=== PATIENT | female | born 1945 | race Caucasian/White ===

== ENCOUNTER → 2016-09-09 | Outpatient (CLI) | payer OTHER ==
[~2016-09-09] MED LIST: ACIDOPHILUS1 EAC3 PO; ALIGN4 MG PO; APAP500 PO; CENTRUM TABLET1 TAB PO; IBUPROFEN 200200 M1 PO; PRILOSEC 20 MG20 MG PO; REGLAN 10 MG TA10 MG PO
== END ==
LOC: CAT 16:38
DX: J44.9 Chronic obstructive pulmonary disease, unspecified (principal)

== ENCOUNTER → 2017-08-11 | Outpatient (CLI) | payer OTHER ==
[~2017-08-11] VITALS: Ht 157.5 cm; Wt 72.6 kg
[~2017-08-11] MED LIST changes: +ACCUNEB SO1.25 MG/1 INH; +CENTRUM SILVER1 EAC4 PO; +ELIQUIS5 MG PO; +KLOR-CON 1010 MEQ PO; +LASIX 40 MG TAB40 M2 PO; +MAGNESIUM CITR100 MG PO; +SYMBICORT160 MCG/4. INH; +TIKOSYN250 MCG PO; +TOPAMAX50 MG PO
--- NOTE | ~2017-08-11 | P ---
[facility] [place] [address] [place] [address] PROCEDURE REPORT Name: CHIOMA DEUTSCH Room #: REG [facility]#: [id number] Admission: 08/11/17 Attend Phys: Bartolo Ordoñez Discharge: Date of : 41 Report #: [id number] THIS REPORT FOR: //name// CC: Bartolo Covarrubias [facility] physician/PCP HANNA WHITING DATE OF SERVICE: 08/11/2017 PROCEDURE PERFORMED: Colonoscopy with biopsies. HISTORY OF PRESENT ILLNESS: The patient is a 71-year-old female who presents today for routine colonoscopy. No family history of colon cancer. PROCEDURE: The risks and benefits of the procedure were explained to the patient, those risks including, but not limited to bleeding, perforation, and the risk of sedation. She understood these risks and gave informed consent. Sedation was given using propofol per anesthesia. Next, a digital rectal exam was initially performed, which was normal. Next, using a standard Fujinon colonoscope, the scope was placed in the patient's anus and advanced under direct vision to the cecum. The overall prep was excellent. The cecum and ileocecal valve were normal in appearance. Ascending, transverse and descending colon were normal. Random biopsies were obtained to rule out microscopic colitis. A few small scattered diverticula were noted in the sigmoid colon, no evidence of inflammation, otherwise normal. A surgical anastomosis in the remaining sigmoid colon was noted. Of note, the patient had a previous partial sigmoid resection in the past for diverticulitis. The rectal mucosa was normal. On retroflexion, no abnormalities were noted. The scope was then withdrawn and the procedure terminated. The patient tolerated the procedure well. IMPRESSION: 1. Surgical anastomosis noted in the sigmoid colon. 2. A few small diverticula noted in the remaining sigmoid colon. 3. Otherwise, normal colonoscopy. RECOMMENDATIONS: 1. Consider repeat colonoscopy in 10 years. 2. Await biopsy results. Thank you for allowing me to participate in her care. By: [id number] [id number] Bartolo Covarrubias MD /nt
--- NOTE | ~2017-08-11 | P ---
[facility] [place] [address] [place] [address] PROCEDURE REPORT Name: CHIOMA DEUTSCH [facility] [id number] Admission: 08/11/17 Attend Phys: Bartolo Ordoñez Discharge: Date of : 41 Report #: [id number] THIS REPORT FOR: //name// CC: Bartolo Covarrubias [facility] physician/PCP HANNA WHITING DATE OF SERVICE: 08/11/2017 PROCEDURE PERFORMED: Upper endoscopy with biopsies. HISTORY OF PRESENT ILLNESS: The patient is a 71-year-old female with a history of Bradley's esophagus, on daily PPI therapy. She denies any significant heartburn symptoms currently. Denies any dysphagia. Last upper endoscopy with biopsies was 3 years ago. The patient also reports recent diarrhea after starting an anti-depressive medication, which has now been discontinued. PROCEDURE: The risks and benefits of the procedure were explained to the patient, those risks including, but not limited to bleeding, perforation, and the risk of sedation. She understood these risks and gave informed consent. Sedation was given using propofol per anesthesia. Next, using a standard Visual IQn upper endoscope, the scope was placed in the patient's mouth and advanced under direct vision through the esophagus, stomach and into the second portion of the duodenum. The larynx was normal in appearance. The upper and mid esophagus were normal. In the distal esophagus, 2 shorts segment Bradley's esophagus was noted. Biopsies were obtained. There was no evidence of esophagitis. Upon entering the stomach, a small hiatal hernia was noted. Overall, the gastric mucosa was normal. The pylorus was normal and patent. The duodenal bulb, first and second portion were all normal. Biopsies were obtained of the second portion of duodenum to rule out sprue. The scope was then withdrawn and the procedure terminated. The patient tolerated the procedure well. IMPRESSION: 1. Short segment Bradley's esophagus. 2. Small hiatal hernia. 3. Otherwise, normal upper endoscopy. RECOMMENDATIONS: 1. Await biopsy results. 2. Continue PPI therapy. 3. We will proceed with colonoscopy next today. [facility] [address] [place] [address] PROCEDURE REPORT Name: CHIOMA DEUTSCH Room #: REG ALE[facility] Macedo#: [id number] Admission: 08/11/17 Attend Phys: Bartolo Ordoñez Discharge: Date of : 41 Report #: [id number] Thank you for allowing me to participate in her care. By: 1022 [id number] Bartolo Covarrubias MD /nt
--- NOTE | ~2017-08-11 | S ---
[facility] [place] [address] [place] [address] SURGICAL PATH RPT PROCEDURE Name: CHIOMA BAILON Room #: REG [facility] AdileneJacqui.#: [id number] Admission: 08/11/17 Date of : 41 Discharge: Report #: [id number] Path Case #: [id number] PATHOLOGY REPORT COLLECTION DATE: 08/11/2017 RECEIVED DATE: 08/11/2017 SUBMITTING PHYS: Dr. Bartolo Covarrubias OTHER PHYS: SPECIMEN(S) RECEIVED: A.Duodenum B.Distal esophagus C.Random colon * * * * * * * * * * * * FINAL DIAGNOSIS: A. Small bowel mucosa, duodenum rule out sprue, endoscopic biopsy: - No diagnostic abnormalities present. - Negative for villous blunting or increase in intraepithelial lymphocytosis. B. Gastroesophageal mucosa, distal esophagus, endoscopic biopsy: - Specialized columnar epithelium (gastric cardia-type mucosa) with intestinal metaplasia, consistent with Bradley's metaplasia. (see comment) - Negative for dysplasia. - Focal squamous mucosa showing features compatible with mild esophagitis. C. Large intestine mucosa, random colon, endoscopic biopsy: - Mild focal active colitis. (see comment) - Negative for dysplasia or malignancy. COMMENT: B: The above diagnosis of Bradley's esophagus is made due to the presence of goblet cells (intestinal metaplasia) and with the assumption that the biopsies were obtained from the columnar mucosa in the distal esophagus located at least 1.0 cm proximal to the top of the gastric folds as per the 2016 ACG guidelines. C: Examination shows focal acute surface epithelial inflammation along with rare foci of cryptitis. There are no crypt abscesses present. There are no viral inclusions, granulomata, or parasitic organisms present. Crypt architectural abnormalities are not identified as well. Findings may be suggestive of a mild self-limited acute episode of colitis, a resolving episode of colitis, acute diverticulitis, or medication-induced colitis. Please correlate clinically. There is no dysplasia or malignancy present. (IUV:mgr; 08/12/2017) [address] [address] SURGICAL PATH RPT PROCEDURE Name: DIANE BAILONITE [place] Room #: [facility].#: [id number] Admission: 08/11/17 Date of : 41 Discharge: Report #: [id number] Path Case #: [id number] PATHOLOGIST: Steffanie Prince M.D. REPORT ELECTRONICALLY SIGNED BY: Steffanie Prince M.D. DATE/TIME: 08/12/2017 14:55 * * * * * * * * * * * * GROSS PATHOLOGY: A. Received in formalin labeled "Chiomairish Bailon, duodenum BX, rule out sprue, Hx diarrhea," are 3 segments of cuello soft tissue measuring 1.1 x 0.8 x 0.2 cm in aggregate dimensions and ranging from 0.3 to 0.4 cm in maximum dimension. The specimen is submitted entirely in cassette A1. B. Received in formalin labeled "Chioma Bailon, distal esophagus BX, Hx Bradley's," are 2 segments of cuello soft tissue measuring 0.6 x 0.3 x 0.2 cm in aggregate dimensions and measuring 0.3 cm each in maximum dimension. The specimen is submitted entirely in cassette B1. C. Received in formalin labeled "Chioma Bailon, random colon biopsies, rule out microscopic colitis," are 3 segments of cuello soft tissue measuring 1.3 x 0.5 x 0.2 cm in aggregate dimensions and ranging from 0.3 to 0.7 cm in maximum dimension. The specimen is submitted entirely in cassette C1. (TSD; 08/11/2017) CLINICAL HISTORY: Hx Bradley's, screening INITIAL CPT CODE(S): A; 21287 B; 62182 C; 89341 Professional services performed by [facility] at [place] [address], [place] [address] Technical services performed by [facility] at [address] [place] [address], [address], [place] [address]. [facility] [address] [place] [address] PHONE: [phone] DIRECTOR: Rashel Carmen M.D. * * * END OF REPORT * * *
== END | disposition home or self-care (01) ==
LOC: GI 08:38
DX: K29.00 Acute gastritis without bleeding (principal); K20.9 Esophagitis, unspecified; K31.89 Other diseases of stomach and duodenum; J43.9 Emphysema, unspecified; Z87.891 Personal history of nicotine dependence; K21.9 Gastro-esophageal reflux disease without esophagitis; Z98.890 Other specified postprocedural states; Z90.710 Acquired absence of both cervix and uterus; Z79.899 Other long term (current) drug therapy; Z98.41 Cataract extraction status, right eye; Z98.42 Cataract extraction status, left eye; Z88.0 Allergy status to penicillin; Z88.8 Allergy status to other drugs, medicaments and biological substances
CPT/HCPCS: 62110; 62900

== ENCOUNTER → 2018-11-16 | Outpatient (CLI) | payer OTHER | LOC: RAD 09:12 | DX: R06.02 Shortness of breath (principal); J44.9 Chronic obstructive pulmonary disease, unspecified; M51.34 Other intervertebral disc degeneration, thoracic region; Z88.8 Allergy status to other drugs, medicaments and biological substances; Z88.0 Allergy status to penicillin; Z95.2 Presence of prosthetic heart valve ==